=== PATIENT | male | born 1990 | race Caucasian/White ===

== ENCOUNTER 2017-05-12 19:48 | Emergency (ER) | payer OTHER ==
[~2017-05-12] VITALS: Ht 170.2 cm; Wt 72.7 kg
[2017-05-12] MEDS ORDERED: IBUPROFEN 600 MG TABLET PO ONE (20:15)
[2017-05-12 21:04] VITALS: BP 132/85
== END 2017-05-12 21:06 | disposition home or self-care (01) ==
LOC: EMS 19:52
DX: J40 Bronchitis, not specified as acute or chronic (principal); R51 Headache
CPT/HCPCS: 99283